=== PATIENT | female | born 1955 | race African-American/Black ===

== ENCOUNTER 2024-08-23 11:58 | Emergency (ER) | payer OTHER ==
[~2024-08-23] VITALS: Ht 162.6 cm; Wt 82.0 kg
[2024-08-23 12:07] VITALS: O2SAT 97
[2024-08-23 12:52] LABS: BASOPHILS % 0.7 % (0.0-2.0); DIFFERENTIAL COMMENT 0; EOSINOPHILS % 1.6 % (0.0-5.0); HEMATOCRIT. 41.4 % (36.0-48.0); HEMOGLOBIN. 13.8 g/dL (12.0-16.0); LYMPHOCYTES % 22.8 % (20.0-50.0); MEAN CORPUSCULAR HEMOGLOBIN 33.8 pg (28.0-32.0); MEAN CORPUSCULAR HGB CONC 33.4 g/dL (31.0-37.0); MEAN CORPUSCULAR VOLUME 101.2 fL (81.0-99.0); MEAN PLATELET VOLUME 8.2 fl (7.4-10.4); MONOCYTES % 7.6 % (2.0-8.0); NEUTROPHILS % 67.3 % (40.0-76.0); PLATELET 223 x1000/uL (130-400); RED CELL DISTRIBUTION WIDTH 13.7 % (11.6-14.6); WHITE BLOOD COUNT 7.5 x1000/uL (4.5-11.0)
[2024-08-23 12:58] LABS: CHLORIDE 107 mEq/L (98-107); POTASSIUM 3.7 mEq/L (3.5-5.1); SODIUM 140 mEq/L (136-145)
[2024-08-23 12:59] LABS: CALCIUM 9.6 mg/dL (8.7-10.4); CARBON DIOXIDE 27 mEq/L (21-32)
[2024-08-23 13:04] LABS: GLUCOSE 124 mg/dL (70-105)
[2024-08-23 13:05] LABS: UREA NITROGEN BLOOD 13 mg/dL (9-23)
[2024-08-23 13:06] LABS: ACETAMINOPHEN < 2 ug/mL (10-30); ALANINE AMINOTRANSFERASE 14 IU/L (10-49); ALBUMIN 4.3 g/dL (3.2-4.8); ASPARTATE AMINOTRANSFERASE 24 IU/L (<34)
[2024-08-23 13:07] LABS: BILIRUBIN TOTAL 0.3 mg/dL (0.1-1.0)
[2024-08-23 13:12] LABS: BILIRUBIN DIRECT < 0.1 mg/dL (<=3.0)
[2024-08-23 13:13] LABS: ETHANOL BLOOD < 10 mg/dL (<10)
[2024-08-23] MEDS: ACETAMINOPHEN 325MG TABLET PO ONE (17:06)
[2024-08-23 21:27] LABS: CLARITY URINE CLOUDY (CLEAR); COLOR URINE DARK YELLOW (YELLOW); GLUCOSE URINE NEGATIVE (NEGATIVE); KETONES URINE TRACE (NEGATIVE); LEUKOCYTE ESTERASE URINE 2+ (NEGATIVE); NITRITE URINE POSITIVE (NEGATIVE); OCCULT BLOOD URINE 2+ (NEGATIVE); PH URINE 5.5 (4.5-8.0); PROTEIN URINE 3+ (NEGATIVE); SPECIFIC GRAVITY URINE 1.033 (1.005-1.030)
[2024-08-23 21:33] LABS: *AMPHETAMINES SCREEN URINE NEGATIVE (NEGATIVE); *BARBITURATES SCREEN URINE NEGATIVE (NEGATIVE); *BENZODIAZEPINES SCREEN URINE NEGATIVE (NEGATIVE); *COCAINE SCREEN URINE NEGATIVE (NEGATIVE); METHADONE URINE SCREEN NEGATIVE (NEGATIVE); OPIATES URINE SCREEN NEGATIVE (NEGATIVE); PHENCYCLIDINE URINE SCREEN NEGATIVE (NEGATIVE)
[2024-08-23 21:34] LABS: CANNABINOID URINE SCREEN PRESUMPTIVE POSITIVE (NEGATIVE); ECSTASY MDMA SCREEN URINE NEGATIVE (NEGATIVE)
[2024-08-23] MEDS: CYCLOBENZAPRINE 10MG TABLET PO ONE (21:44)
[2024-08-23 22:07] LABS: BACTERIA URINE 3+; SQUAMOUS EPITHELIAL CELL URINE 2+ /lpf (RARE/1+)
[2024-08-23 22:08] LABS: WBC URINE 15-25 /hpf (0-2)
[2024-08-24] MEDS: HYDROCHLOROTHIAZIDE 25MG TABLET PO SCH (06:45)
[2024-08-24] MEDS ORDERED: NITROFURANTOIN 100MG M/M CAPSULE PO ONE (08:30)
[2024-08-24] MEDS: NITROFURANTOIN 100MG M/M CAPSULE PO NR (10:41)
[2024-08-24] MEDS: ACETAMINOPHEN 500MG TABLET PO ONE (10:41)
[2024-08-24] MEDS ORDERED: LISINOPRIL 20MG TABLET PO ONE (17:45)
[2024-08-24] MEDS: HYDRALAZINE 20MG/ML VIAL IV ONE (18:02)
[2024-08-24] MEDS: LISINOPRIL 20MG TABLET PO ONE (19:58)
[2024-08-24] MEDS ORDERED: FUROSEMIDE 20MG TABLET PO ONE (21:45)
[2024-08-24] MEDS: FUROSEMIDE 40MG TABLET PO NR (21:50)
[2024-08-24 22:17] VITALS: BP 150/88; PULSE 85; RESP 18; TEMP 37.05852; O2SAT 99
== END 2024-08-25 00:07 ==
LOC: ER 11:58
DX: R45.851 Suicidal ideations (principal); I10 Essential (primary) hypertension; M41.9 Scoliosis, unspecified; Z88.0 Allergy status to penicillin; Z20.822 Contact with and (suspected) exposure to COVID-19
CPT/HCPCS: 80076; 80305; 80048; 81003; 80307; 80329; 80320; 85025; 87086; 36415; 99291; 87426; J0360; C1893; G0480